=== PATIENT | female | born 1995 | race Caucasian/White ===

== ENCOUNTER 2024-03-17 03:57 | Emergency (ER) | payer OTHER ==
[2024-03-17 04:10] VITALS: BP 116/56; PULSE 64; RESP 16; TEMP 97.7; BMI 20.9
[2024-03-17] MEDS ORDERED: CEPHALEXIN MONOHYDRATE 500 MG CAPSULE (UD) ONE (05:08)
[2024-03-17] MEDS ORDERED: DIPHTH,PERTUSS(ACELL),TET 0.5 ML DISP.SYRIN IM ONE (05:08)
[2024-03-17] MEDS: CEPHALEXIN MONOHYDRATE 500 MG CAPSULE (UD) PO ONE (05:11)
[2024-03-17] MEDS: DIPHTH,PERTUSS(ACELL),TET 0.5 ML DISP.SYRIN IM ONE (05:11)
== END 2024-03-17 05:14 | disposition home or self-care (01) ==
LOC: FER 03:57
PROC: 0HQQXZZ Repair Finger Nail, External Approach (ICD-10-PCS; principal; 2024-03-17)
PROC: 3E0234Z Introduction of Serum, Toxoid and Vaccine into Muscle, Percutaneous Approach (ICD-10-PCS; 2024-03-17)
DX: S90.211A Contusion of right great toe with damage to nail, initial encounter (principal); X58.XXXA Exposure to other specified factors, initial encounter; Z23 Encounter for immunization
CPT/HCPCS: 73660-TC-FY; 90715; 99284-25